=== PATIENT | male | born 1980 | race Caucasian/White ===

== ENCOUNTER 2016-07-21 19:47 | Inpatient (IN) | payer OTHER ==
[2016-07-21 21:00] VITALS: BMI 31.6
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
[2016-07-21] MEDS ORDERED: MAGNESIUM CITRATE 300 ML BOTTLE PO PRN (21:12)
[2016-07-21] MEDS ORDERED: chlordiazePOXIDE HCL 25 MG CAPSULE PO ONE (21:12)
[2016-07-21] MEDS ORDERED: LOPERAMIDE HCL 2 MG CAPSULE PO PRN (21:12)
[2016-07-21] MEDS ORDERED: ACETAMINOPHEN 325 MG TABLET (FP) PO PRN (21:12)
[2016-07-21] MEDS ORDERED: guaiFENesin/D-METHORPHAN HB 10 ML UNIT-DOSE CUPS PO PRN (21:12)
[2016-07-21] MEDS ORDERED: chlordiazePOXIDE HCL 25 MG CAPSULE PO PRN (21:12)
[2016-07-21] MEDS ORDERED: MENTHOL/PHENOL 1 EACH UD MM PRN (21:12)
[2016-07-21] MEDS ORDERED: hydrOXYzine PAMOATE 50 MG CAPSULE (FP) PO PRN (21:12)
[2016-07-21] MEDS ORDERED: MAGNESIUM HYDROX 2400MG/30ML ORAL SUSPENSION 30 ML CUP PO PRN (21:12)
[2016-07-21] MEDS ORDERED: MAG HYDROX/AL HYDROX/SIMETH 30 ML UNIT-DOSE CUP PO PRN (21:12)
[2016-07-21] MEDS ORDERED: IBUPROFEN 400 MG TABLET (FP) PO PRN (21:12)
[2016-07-21] MEDS ORDERED: P-EPHED 60MG/TRIPROLIDI 2.5MG TABLET PO PRN (21:12)
[2016-07-21] MEDS: chlordiazePOXIDE HCL 25 MG CAPSULE PO SCH (22:02)
[2016-07-21] MEDS: THIAMINE HCL 100 MG TABLET (FP) PO SCH (22:57)
[2016-07-21 23:36] LABS: URINE APPEARANCE CLEAR; URINE BILIRUBIN NEGATIVE (NEGATIVE); URINE BLOOD NEGATIVE (NEGATIVE); URINE COLOR LTYELLOW; URINE GLUCOSE (UA) NEGATIVE (NEGATIVE); URINE KETONE NEGATIVE (NEGATIVE); URINE NITRITE NEGATIVE (NEGATIVE); URINE PROTEIN NEGATIVE (NEGATIVE); URINE UROBILINOGEN NEGATIVE E.U./dl (0.2-1.0)
[2016-07-21 23:38] LABS: URINE LEUK ESTERASE TRACE (NEGATIVE)
[2016-07-21 23:59] LABS: URINE HYALINE CAST 3 /lpf; URINE MUCUS RARE; URINE RBC <1 /hpf (0-3); URINE WBC 1 /hpf (3-5)
[2016-07-22] MEDS: chlordiazePOXIDE HCL 25 MG CAPSULE PO SCH ×4 (05:40→22:11)
[2016-07-22 10:02] LABS: MCH 29.9 pg (25.7-33.7); MCHC 33.5 g/dl (32.0-35.9); MEAN CELL VOLUME 89.1 fl (80-96); PLATELET COUNT 207 K/MM3 (134-434); RDW 14.2 % (11.9-15.9)
[2016-07-22] MEDS: PRENATAL VITAMINS W/ FOLIC ACID TABLET (FP) PO SCH (10:25)
--- NOTE | 2016-07-22 10:30 | CONSULT ---
[facility] Psychiatric Consult - Data Date of interview: 07/22/16 Admission source: [facility] Identifying data: This is 36 years old male with no psychiatric hospitalization history intoxiocated with: Alcohol Substance Abuse History: - Smoking Cessation. Smoking history: Former smoker. Have you smoked in the past 12 months: No. Hx Chewing Tobacco Use: No. Initiated information on smoking cessation: No. - Substance & Tx. History. Hx Alcohol Use: Yes. Hx Substance Use: No. Substance Use Type: Alcohol. Hx Substance Use Treatment: Yes (DETOX AND REHAB ). - Substances Abused. Alcohol. Route: Oral. Frequency: Daily. Amount used: 1-2 PINTS OF VODKA. Age of first use: 14. Date of Last Use: 07/21/16 Medical History: Denies significant medical issues Psychiatric History: Denies Physical/Sexual Abuse/Trauma History: Denies Additional Comment: Observation. Detox Unit Care Mental Status Exam - Mental Status Exam Alert and Oriented to: Person Patient Appearance: Unkempt Mood: Sad Affect: Flat Patient Behavior: Sedated Speech Pattern: Delayed Voice Loudness: Mildly Soft/Quiet Thought Process: Circumstantial Thought Disorder: Being Controlled Hallucinations: Denies Suicidal Ideation: Denies Homicidal Ideation: Denies Insight/Judgement: Fair Sleep: Difficulty falling asleep Appetite: Weight loss Muscle strength/Tone: Mild Hypotonicity Gait/Station: Shuffling Additional Comments: Observation. Detox Unit Care Psychiatric Findings - Problem List ([place] 1, 2,3) (1) Alcohol dependence with uncomplicated withdrawal Current Visit: Yes Status: Chronic (2) Alcohol dependence Current Visit: No Status: Active (3) Alcohol induced insomnia Current Visit: Yes Status: Acute (4) Alcohol-induced mood disorder Current Visit: Yes Status: Suspected - Initial Treatment Plan Initial Treatment Plan: Observation. Detox Unit Care
[2016-07-22 10:44] LABS: ALBUMIN 3.3 g/dl (3.4-5.0); ALK PHOS 76 U/L (45-117); ANION GAP 7 (8-16); BILIRUBIN,TOTAL 0.4 mg/dL (0.2-1.0); CALCIUM 8.4 mg/dL (8.5-10.1); CO2 28 mmol/L (21-32); CREATININE 0.9 mg/dL (0.7-1.3); GLUCOSE,RANDOM 95 mg/dL (74-106); SGOT/AST 24 U/L (15-37); SGPT/ALT 38 U/L (12-78); TOT PROT 6.7 g/dl (6.4-8.2)
[2016-07-22] MEDS ORDERED: ONDANSETRON *ODT* 4 MG TABLET SL PRN (12:39)
--- NOTE | 2016-07-22 12:39 | PN ---
[facility] CIWA - CIWA Score Nausea/Vomitin-No Nausea/No Vomiting Muscle Tremors: 3 Anxiety: 3 Agitation: 3 Paroxysmal Sweats: 3 Orientation: 0-Oriented Tacttile Disturbances: 0-None Auditory Disturbances: 0-None Visual Disturbances: 0-None Headache: 1-Very Mild CIWA-Ar Total Score: 13 S Progress Note (SOAP) Subjective: body aches sweats shakes nausea body aches Objective: 07/22/16 12:38 Vital Signs Temperature 97.2 F L 07/22/16 09:50 Pulse Rate 83 07/22/16 09:50 Respiratory Rate 18 07/22/16 09:50 Blood Pressure 135/99 07/22/16 09:50 O2 Sat by Pulse Oximetry (%) Laboratory Tests 07/21/16 07/22/16 07/22/16 22:28 07:00 07:00 WBC 7.0 RBC 4.84 Hgb 14.4 D Hct 43.1 MCV 89.1 MCHC 33.5 RDW 14.2 Plt Count 207 D MPV 9.0 Sodium 141 Potassium 4.2 Chloride 106 Carbon Dioxide 28 Anion Gap 7 L BUN 20 H D Creatinine 0.9 D Creat Clearance w eGFR > 60 Random Glucose 95 Calcium 8.4 L Total Bilirubin 0.4 AST 24 D ALT 38 D Alkaline Phosphatase 76 D Total Protein 6.7 Albumin 3.3 L D Urine Color Ltyellow Urine Appearance Clear Urine pH 5.0 Ur Specific [place] 1.021 Urine Protein Negative Urine Glucose (UA) Negative Urine Ketones Negative Urine Blood Negative Urine Nitrite Negative Urine Bilirubin Negative Urine Urobilinogen Negative Ur Leukocyte Esterase Trace H Urine RBC <1 Urine WBC 1 Ur Epithelial Cells Rare Hyaline Casts 3 Urine Mucus Rare RPR Titer 07/22/16 07:00 WBC RBC Hgb Hct MCV MCHC RDW Plt Count MPV Sodium Potassium Chloride Carbon Dioxide Anion Gap BUN Creatinine Creat Clearance w eGFR Random Glucose Calcium Total Bilirubin AST ALT Alkaline Phosphatase Total Protein Albumin Urine Color Urine Appearance Urine pH Ur Specific [place] Urine Protein Urine Glucose (UA) Urine Ketones Urine Blood Urine Nitrite Urine Bilirubin Urine Urobilinogen Ur Leukocyte Esterase Urine RBC Urine WBC Ur Epithelial Cells Hyaline Casts Urine Mucus RPR Titer Nonreactive awake/alert ambulating no acute distress Assessment: 07/22/16 12:38 withdrawal sx Plan: continue detox increase fluids zofran prn lidocaine patch
[2016-07-22 12:53] LABS: HIV 1 & 2 AB NEGATIVE; HIV 1 AGp24 NEGATIVE
--- NOTE | 2016-07-22 14:26 | EKG ---
Test Reason : Blood Pressure : / mmHG Vent. Rate : 083 BPM Atrial Rate : 083 BPM P-R Int : 178 ms QRS Dur : 092 ms QT Int : 346 ms P-R-T Axes : 067 078 045 degrees QTc Int : 406 ms NORMAL SINUS RHYTHM NORMAL ECG WHEN COMPARED WITH ECG OF 09-JUN-2013 09:33, NO SIGNIFICANT CHANGE WAS FOUND Confirmed by ELIOT LEACH MD ([id number]) on 07/22/2016 2:25:47 PM Referred By: Jesus Humphrey Confirmed By:ELIOT LEACH MD
[2016-07-22] MEDS: diphenhydrAMINE HCL 50 MG CAPSULE PO PRN (22:11)
[2016-07-22] MEDS: THIAMINE HCL 100 MG TABLET (FP) PO SCH (22:11)
[2016-07-23] MEDS: chlordiazePOXIDE HCL 25 MG CAPSULE PO SCH ×3 (06:22→17:45)
[2016-07-23] MEDS: PRENATAL VITAMINS W/ FOLIC ACID TABLET (FP) PO SCH (10:06)
--- NOTE | 2016-07-23 10:55 | PN ---
S CIWA - CIWA Score Nausea/Vomitin Muscle Tremors: 2 Anxiety: 2 Agitation: 2 Paroxysmal Sweats: 2 Orientation: 0-Oriented Tacttile Disturbances: 0-None Auditory Disturbances: 1-Very Mild Visual Disturbances: 2-Mild Sensitivity Headache: 2-Mild CIWA-Ar Total Score: 16 S Progress Note (SOAP) Objective: 07/23/16 10:54 Vital Signs - 24 hr 07/22/16 07/22/16 07/22/16 15:06 17:56 22:23 Temperature 98.6 F 97.3 F L 97.7 F Pulse Rate 77 93 H 66 Respiratory 16 20 16 Rate Blood Pressure 116/78 119/57 115/65 07/23/16 07/23/16 07/23/16 00:30 03:30 06:51 Temperature 96.4 F L Pulse Rate 74 Respiratory 18 18 18 Rate Blood Pressure 121/52 07/23/16 09:47 Temperature 98.1 F Pulse Rate 88 Respiratory 18 Rate Blood Pressure 116/62 Laboratory Tests 07/21/16 07/22/16 07/22/16 22:28 07:00 07:00 WBC 7.0 RBC 4.84 Hgb 14.4 D Hct 43.1 MCV 89.1 MCHC 33.5 RDW 14.2 Plt Count 207 D MPV 9.0 Sodium 141 Potassium 4.2 Chloride 106 Carbon Dioxide 28 Anion Gap 7 L BUN 20 H D Creatinine 0.9 D Creat Clearance w eGFR > 60 Random Glucose 95 Calcium 8.4 L Total Bilirubin 0.4 AST 24 D ALT 38 D Alkaline Phosphatase 76 D Total Protein 6.7 Albumin 3.3 L D Urine Color Ltyellow Urine Appearance Clear Urine pH 5.0 Ur Specific [place] 1.021 Urine Protein Negative Urine Glucose (UA) Negative Urine Ketones Negative Urine Blood Negative Urine Nitrite Negative Urine Bilirubin Negative Urine Urobilinogen Negative Ur Leukocyte Esterase Trace H Urine RBC <1 Urine WBC 1 Ur Epithelial Cells Rare Hyaline Casts 3 Urine Mucus Rare RPR Titer HIV 1&2 Antibody Screen HIV P24 Antigen 07/22/16 07/22/16 07:00 07:00 WBC RBC Hgb Hct MCV MCHC RDW Plt Count MPV Sodium Potassium Chloride Carbon Dioxide Anion Gap BUN Creatinine Creat Clearance w eGFR Random Glucose Calcium Total Bilirubin AST ALT Alkaline Phosphatase Total Protein Albumin Urine Color Urine Appearance Urine pH Ur Specific [place] Urine Protein Urine Glucose (UA) Urine Ketones Urine Blood Urine Nitrite Urine Bilirubin Urine Urobilinogen Ur Leukocyte Esterase Urine RBC Urine WBC Ur Epithelial Cells Hyaline Casts Urine Mucus RPR Titer Nonreactive HIV 1&2 Antibody Screen Negative HIV P24 Antigen Negative Assessment: 07/23/16 10:54 ongoing withdrawal Plan: continue detox
[2016-07-23] MEDS: chlordiazePOXIDE 5 MG CAPSULE PO SCH (22:01)
[2016-07-23] MEDS: THIAMINE HCL 100 MG TABLET (FP) PO SCH (22:01)
[2016-07-23] MEDS: diphenhydrAMINE HCL 50 MG CAPSULE PO PRN (22:02)
[2016-07-24] MEDS: chlordiazePOXIDE 5 MG CAPSULE PO SCH ×3 (05:45→17:24)
[2016-07-24] MEDS: PRENATAL VITAMINS W/ FOLIC ACID TABLET (FP) PO SCH (10:32)
--- NOTE | 2016-07-24 11:16 | PN ---
[facility] Progress Note (SOAP) Subjective: nausea, sweats, interrupted sleep, anxiety, tremors Objective: 07/24/16 11:16 Vital Signs - 8 hr 07/24/16 07/24/16 07/24/16 03:30 06:00 10:20 Temperature 97.3 F L 97.1 F L Pulse Rate 68 75 Respiratory 20 20 18 Rate Blood Pressure 105/58 126/68 Laboratory Tests 07/21/16 07/22/16 07/22/16 22:28 07:00 07:00 WBC 7.0 RBC 4.84 Hgb 14.4 D Hct 43.1 MCV 89.1 MCHC 33.5 RDW 14.2 Plt Count 207 D MPV 9.0 Sodium 141 Potassium 4.2 Chloride 106 Carbon Dioxide 28 Anion Gap 7 L BUN 20 H D Creatinine 0.9 D Creat Clearance w eGFR > 60 Random Glucose 95 Calcium 8.4 L Total Bilirubin 0.4 AST 24 D ALT 38 D Alkaline Phosphatase 76 D Total Protein 6.7 Albumin 3.3 L D Urine Color Ltyellow Urine Appearance Clear Urine pH 5.0 Ur Specific [place] 1.021 Urine Protein Negative Urine Glucose (UA) Negative Urine Ketones Negative Urine Blood Negative Urine Nitrite Negative Urine Bilirubin Negative Urine Urobilinogen Negative Ur Leukocyte Esterase Trace H Urine RBC <1 Urine WBC 1 Ur Epithelial Cells Rare Hyaline Casts 3 Urine Mucus Rare RPR Titer HIV 1&2 Antibody Screen HIV P24 Antigen 07/22/16 07/22/16 07:00 07:00 WBC RBC Hgb Hct MCV MCHC RDW Plt Count MPV Sodium Potassium Chloride Carbon Dioxide Anion Gap BUN Creatinine Creat Clearance w eGFR Random Glucose Calcium Total Bilirubin AST ALT Alkaline Phosphatase Total Protein Albumin Urine Color Urine Appearance Urine pH Ur Specific [place] Urine Protein Urine Glucose (UA) Urine Ketones Urine Blood Urine Nitrite Urine Bilirubin Urine Urobilinogen Ur Leukocyte Esterase Urine RBC Urine WBC Ur Epithelial Cells Hyaline Casts Urine Mucus RPR Titer Nonreactive HIV 1&2 Antibody Screen Negative HIV P24 Antigen Negative Assessment: 07/24/16 11:16 withdrawal sx Plan: cont detox
[2016-07-24] MEDS: THIAMINE HCL 100 MG TABLET (FP) PO SCH (22:35)
[2016-07-24] MEDS: chlordiazePOXIDE HCL 10 MG CAPSULE PO SCH (22:35)
[2016-07-24] MEDS: diphenhydrAMINE HCL 50 MG CAPSULE PO PRN (22:35)
[2016-07-25] MEDS: chlordiazePOXIDE HCL 10 MG CAPSULE PO SCH (06:13)
--- NOTE | 2016-07-25 08:30 | DS ---
[facility] Detox Discharge Summary Admission Date: 07/21/16 Discharge Date: 07/25/16 - History Present History: Alcohol Dependence Pertinent Past History: INSOMNIA - Physical Exam Results Vital Signs: Vital Signs Temperature 97.5 F L 07/25/16 06:00 Pulse Rate 55 L 07/25/16 06:00 Respiratory Rate 20 07/25/16 06:00 Blood Pressure 96/51 07/25/16 06:00 O2 Sat by Pulse Oximetry (%) Pertinent Admission Physical Exam Findings: WITHDRAWAL SX. Laboratory Last Values WBC 7.0 K/mm3 (4.0-10.0) 07/22/16 07:00 RBC 4.84 M/mm3 (4.00-5.60) 07/22/16 07:00 Hgb 14.4 GM/dL (11.7-16.9) D 07/22/16 07:00 Hct 43.1 % (35.4-49) 07/22/16 07:00 MCV 89.1 fl (80-96) 07/22/16 07:00 MCHC 33.5 g/dl (32.0-35.9) 07/22/16 07:00 RDW 14.2 % (11.9-15.9) 07/22/16 07:00 Plt Count 207 K/MM3 (134-434) D 07/22/16 07:00 MPV 9.0 fl (7.5-11.1) 07/22/16 07:00 Sodium 141 mmol/L (136-145) 07/22/16 07:00 Potassium 4.2 mmol/L (3.5-5.1) 07/22/16 07:00 Chloride 106 mmol/L (98-107) 07/22/16 07:00 Carbon Dioxide 28 mmol/L (21-32) 07/22/16 07:00 Anion Gap 7 (8-16) L 07/22/16 07:00 BUN 20 mg/dL (7-18) H D 07/22/16 07:00 Creatinine 0.9 mg/dL (0.7-1.3) D 07/22/16 07:00 Creat Clearance w eGFR > 60 (>60) 07/22/16 07:00 Random Glucose 95 mg/dL (74-106) 07/22/16 07:00 Calcium 8.4 mg/dL (8.5-10.1) L 07/22/16 07:00 Total Bilirubin 0.4 mg/dL (0.2-1.0) 07/22/16 07:00 AST 24 U/L (15-37) D 07/22/16 07:00 ALT 38 U/L (12-78) D 07/22/16 07:00 Alkaline Phosphatase 76 U/L (45-117) D 07/22/16 07:00 Total Protein 6.7 g/dl (6.4-8.2) 07/22/16 07:00 Albumin 3.3 g/dl (3.4-5.0) L D 07/22/16 07:00 Urine Color Ltyellow 07/21/16 22:28 Urine Appearance Clear 07/21/16 22:28 Urine pH 5.0 (5.0-8.0) 07/21/16 22:28 Ur Specific [place] 1.021 (1.001-1.035) 07/21/16 22:28 Urine Protein Negative (NEGATIVE) 07/21/16 22:28 Urine Glucose (UA) Negative (NEGATIVE) 07/21/16 22:28 Urine Ketones Negative (NEGATIVE) 07/21/16 22:28 Urine Blood Negative (NEGATIVE) 07/21/16 22:28 Urine Nitrite Negative (NEGATIVE) 07/21/16 22:28 Urine Bilirubin Negative (NEGATIVE) 07/21/16 22:28 Urine Urobilinogen Negative E.U./dl (0.2-1.0) 07/21/16 22:28 Ur Leukocyte Esterase Trace (NEGATIVE) H 07/21/16 22:28 Urine RBC <1 /hpf (0-3) 07/21/16 22:28 Urine WBC 1 /hpf (3-5) 07/21/16 22:28 Ur Epithelial Cells Rare /hpf (FEW) 07/21/16 22:28 Hyaline Casts 3 /lpf 07/21/16 22:28 Urine Mucus Rare 07/21/16 22:28 RPR Titer Nonreactive (NONREACTIVE) 07/22/16 07:00 HIV 1&2 Antibody Screen Negative 07/22/16 07:00 HIV P24 Antigen Negative 07/22/16 07:00 LABS NOTED - Treatment Hospital Course: Detox Protocol Followed, Detoxed Safely, Responded well, Discharged Condition Good, Rehab Referral Accepted - Medication Discharge Medications: Ambulatory Orders NK [No Known Home Medication] 07/21/16 - Diagnosis (1) Alcohol induced insomnia Current Visit: Yes Status: Acute (2) Alcohol dependence with uncomplicated withdrawal Current Visit: Yes Status: Chronic (3) Alcohol-induced mood disorder Current Visit: Yes Status: Suspected - AMA Did Patient Leave Against Medical Advice: No
[2016-07-25 10:35] VITALS: BP 121/71; PULSE 86; TEMP 96.6
== END 2016-07-25 09:15 | disposition home or self-care (01) | DRG 775 ==
LOC: YASAS 19:47 → Y6N 21:06
PROVIDERS: ADMIT Internal Medicine Addiction Medicine; ATTEND Internal Medicine Addiction Medicine
PROC: HZ2ZZZZ Detoxification Services for Substance Abuse Treatment (ICD-10-PCS; principal; 2016-07-21)
DX: F10.230 Alcohol dependence with withdrawal, uncomplicated (principal); F10.24 Alcohol dependence with alcohol-induced mood disorder; F10.282 Alcohol dependence with alcohol-induced sleep disorder; Z91.5 Personal history of self-harm; Z87.891 Personal history of nicotine dependence
CPT/HCPCS: 36415; 80053; 81003; 81015; 85027; 86593; 87389; 93005; 93010

== ENCOUNTER 2017-04-06 18:51 | Emergency (ER) | payer OTHER ==
[2017-04-06 19:27] VITALS: BP 127/69; PULSE 74; TEMP 98.2; BMI 28.1
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
--- NOTE | 2017-04-07 01:49 | PDOC ---
*Physical Exam - Vital Signs Last Vital Signs Temp Pulse Resp BP Pulse Ox 98.2 F 74 18 127/69 98 04/06/17 19:22 04/06/17 19:22 04/06/17 19:22 04/06/17 19:22 04/06/17 19:22 Medical Decision Making - Medical Decision Making 04/07/17 01:49 Pt seen by the Advanced Practice Provider under my direct supervision Ancillary studies reviewed I agree with plan as outlined by the Advanced Practice Provider *DC/Admit/Observation/Transfer Diagnosis at time of Disposition: Alcohol dependence - Discharge Dispostion Disposition: HOME - Referrals Referrals: Kiran Nassar [Primary Care Provider] - Call tomorrow - Patient Instructions Printed Discharge Instructions: DI for Alcohol Abuse Additional Instructions: refrain from drinking alcohol - Post Discharge Activity
== END 2017-04-06 21:53 | disposition home or self-care (01) ==
LOC: JER 18:51
DX: F10.20 Alcohol dependence, uncomplicated (principal); F32.9 Major depressive disorder, single episode, unspecified
CPT/HCPCS: 70450-TC; 99281-25